=== PATIENT | male | born 2000 ===

== ENCOUNTER 2019-04-16 14:15 | Emergency (ER) | payer SELFPAY ==
[~2019-04-16] VITALS: Ht 172.7 cm; Wt 69.4 kg
[2019-04-16 14:18] VITALS: BP 101/55
[2019-04-16] MEDS ORDERED: DIPH,PERTUSS(ACELL),TET VAC/PF 0.5 ML IM-VACC ONE ×2 (14:30→14:44)
[2019-04-16] MEDS ORDERED: BACITRACIN ZINC OINT 500U/GM, 0.9 GM ONE (14:50)
== END 2019-04-16 15:03 | disposition home or self-care (01) ==
LOC: ED 14:40
DX: S51.851A Open bite of right forearm, initial encounter (principal); W54.0XXA Bitten by dog, initial encounter; Y93.89 Activity, other specified; Y92.009 Unspecified place in unspecified non-institutional (private) residence as the place of occurrence of the external cause; Y99.8 Other external cause status
CPT/HCPCS: 90471; 90715